=== PATIENT | female | born 1985 | race Caucasian/White ===

== ENCOUNTER 2019-05-28 14:43 | Emergency (ER) | payer SELFPAY | END 2019-05-28 16:40 | disposition home or self-care (01) | LOC: ERS 14:43 | DX: J06.9 Acute upper respiratory infection, unspecified (principal); I42.9 Cardiomyopathy, unspecified; I25.2 Old myocardial infarction; E03.9 Hypothyroidism, unspecified; E78.5 Hyperlipidemia, unspecified; I10 Essential (primary) hypertension; Z79.01 Long term (current) use of anticoagulants; Z79.899 Other long term (current) drug therapy | CPT/HCPCS: 87081; 87430; 87804; 99283 ==